=== PATIENT | female | born 1945 | race Caucasian/White ===

== ENCOUNTER 2016-03-26 08:40 | Observation (INO) | payer MEDICARE, OTHER ==
[~2016-03-26] VITALS: Ht 160 cm; Wt 68.1 kg
[2016-03-26] VITALS (8 sets, daily range): BP systolic 126–176; BP diastolic 78–97; PULSE 8–90; RESP 16–20; TEMP 97.7–97.8; O2SAT 96–99
[2016-03-26] MEDS ORDERED: SODIUM CHLOR 0.9% 1000 ML INJ 1,000 ML IV SCH (08:41)
[2016-03-26] MEDS ORDERED: SODIUM CHLORIDE 0.9% FLUSH 5 ML FLUSH IVF PRN (08:45)
[2016-03-26] MEDS ORDERED: ONDANSETRON HCL 4 MG/2 ML VIAL IVP ONE (08:45)
--- NOTE | 2016-03-26 08:45 | PD ---
HPI Chief Complaint: nausea, generalized weakness Time Seen by Provider: 08:41 Travel History International Travel<30 days: No Contact w/Intl Traveler<30days: No Traveled to known affect area: No History of Present Illness HPI 70-year-old female with history of vertigo brought in by ambulance from home for evaluation of nausea and generalized weakness. The patient woke up in the middle of the night at around 1:00 AM feeling the symptoms. Symptoms persisted throughout the night. The patient has not vomited. Symptoms are made better by closing her eyes, made worse by opening her eyes. She does not feel as though she is spinning. She denies headache. No chest pain or dyspnea. No abdominal pain. No fevers or chills. PFSH Social History Tobacco Use: No Allergies-Medications (Allergen,Severity, Reaction): Coded Allergies: Codeine (Verified Allergy, Unknown, 03/26/16) Reported Meds & Prescriptions Reported Meds & Active Scripts Active Reported Zocor (Simvastatin) 10 Mg Tab 10 Mg PO DAILY Lesley-D 24 Hour Allergy (Fexofenadine-Pseudoephedrine ER 24 HR) 180-240 Brando 1 Tab PO DAILY Review of Systems Except as stated in HPI: all other systems reviewed are Neg Physical Exam Narrative GENERAL: Well-developed, well-nourished, comfortable, no acute distress. SKIN: Warm and dry. HEAD: Atraumatic. Normocephalic. EYES: Pupils equal and round. No scleral icterus. No injection or drainage. ENT: No nasal bleeding or discharge. Mucous membranes pink and dry. NECK: Trachea midline. No JVD. CARDIOVASCULAR: Regular rate and rhythm. RESPIRATORY: No accessory muscle use. Clear to auscultation. Breath sounds equal bilaterally. GASTROINTESTINAL: Abdomen soft, non-tender, nondistended. MUSCULOSKELETAL: No obvious deformities. No clubbing. No cyanosis. No edema. NEUROLOGICAL: Awake and alert. No obvious cranial nerve deficits. Motor grossly within normal limits. Normal speech. PSYCHIATRIC: Appropriate mood and affect; insight and judgment normal. Data Data Last Documented VS Vital Signs Date Time Temp Pulse Resp B/P Pulse Ox O2 Delivery O2 Flow Rate FiO2 03/26/16 10:02 88 18 145/81 99 Room Air 03/26/16 08:47 97.8 Orders Complete Blood Count With Diff (03/26/16 08:41) Comprehensive Metabolic Panel (03/26/16 08:41) Urinalysis - C+S If Indicated (03/26/16 08:41) Iv Access Insert/Monitor (03/26/16 08:41) Ecg Monitoring (03/26/16 08:41) Oximetry (03/26/16 08:41) Ondansetron Inj (Zofran Inj) (03/26/16 08:45) Sodium Chlor 0.9% 1000 Ml Inj (Ns 1000 M (03/26/16 08:41) Sodium Chloride 0.9% Flush (Ns Flush) (03/26/16 08:45) Electrocardiogram (03/26/16 08:41) Ckmb (Isoenzyme) Profile (03/26/16 08:41) Troponin I (03/26/16 08:41) Influenzae A/B Antigen (03/26/16 08:41) CKMB (03/26/16 09:02) CKMB% (03/26/16 09:02) Ct Brain W/O Iv Contrast(Rout) (03/26/16 ) Magnesium (Mg) (03/26/16 09:02) Orthostatic Vital Signs (03/26/16 11:26) Admit Order (Ed Use Only) (03/26/16 11:26) Place In Observation (03/26/16 ) Vital Signs (Adult) Q4H (03/26/16 11:23) Neuro Checks Q4H (03/26/16 11:23) Activity Oob With Assistance (03/26/16 11:23) Low Voltage Electrician / Telemetry .CONTINUOUS (03/26/16 11:23) Intake + Output CARMEN.QSHIFT (03/26/16 11:23) Diet Clear Liquid (03/26/16 Lunch) Sodium Chlor 0.9% 1000 Ml Inj (Ns 1000 M (03/26/16 11:23) Sodium Chloride 0.9% Flush (Ns Flush) (03/26/16 11:30) Sodium Chloride 0.9% Flush (Ns Flush) (03/26/16 21:00) Acetaminophen (Tylenol) (03/26/16 11:30) Ondansetron Inj (Zofran Inj) (03/26/16 11:30) Metoclopramide Inj (Reglan Inj) (03/26/16 11:30) Magnesium Hydroxide Liq (Milk Of Magnesi (03/26/16 11:30) Basic Metabolic Panel (Bmp) (03/27/16 06:00) Case Management Consult (03/26/16 11:23) Scd Bilateral/Knee High CARMEN.BID (03/26/16 11:23) Naloxone Inj (Narcan Inj) (03/26/16 11:30) Orthostatic Blood Pressure RT.TID (03/26/16 11:23) Meclizine (Antivert) (03/26/16 11:45) Meclizine (Antivert) (03/26/16 11:30) Labs Laboratory Tests Test 03/26/16 03/26/16 09:02 10:01 White Blood Count 3.5 TH/MM3 Red Blood Count 4.73 MIL/MM3 Hemoglobin 14.0 GM/DL Hematocrit 41.6 % Mean Corpuscular Volume 87.9 FL Mean Corpuscular Hemoglobin 29.6 PG Mean Corpuscular Hemoglobin 33.7 % Concent Red Cell Distribution Width 13.1 % Platelet Count 256 TH/MM3 Mean Platelet Volume 8.3 FL Neutrophils (%) (Auto) 64.6 % Lymphocytes (%) (Auto) 23.1 % Monocytes (%) (Auto) 9.1 % Eosinophils (%) (Auto) 1.8 % Basophils (%) (Auto) 1.4 % Neutrophils # (Auto) 2.3 TH/MM3 Lymphocytes # (Auto) 0.8 TH/MM3 Monocytes # (Auto) 0.3 TH/MM3 Eosinophils # (Auto) 0.1 TH/MM3 Basophils # (Auto) 0.0 TH/MM3 CBC Comment DIFF FINAL Differential Comment Sodium Level 139 MEQ/L Potassium Level 3.6 MEQ/L Chloride Level 107 MEQ/L Carbon Dioxide Level 22.1 MEQ/L Anion Gap 10 MEQ/L Blood Urea Nitrogen 11 MG/DL Creatinine 0.63 MG/DL Estimat Glomerular Filtration 93 ML/MIN Rate Random Glucose 105 MG/DL Calcium Level 8.0 MG/DL Magnesium Level 1.9 MG/DL Total Bilirubin 0.5 MG/DL Aspartate Amino Transf 29 U/L (AST/SGOT) Alanine Aminotransferase 27 U/L (ALT/SGPT) Alkaline Phosphatase 51 U/L Total Creatine Kinase 150 U/L Creatine Kinase MB 2.4 NG/ML Troponin I LESS THAN 0.02 NG/ML Total Protein 6.8 GM/DL Albumin 3.5 GM/DL Urine Collection Type CLEAN CATCH Urine Color STRAW Urine Turbidity CLEAR Urine pH 7.5 Urine Specific [place] 1.009 Urine Protein NEG mg/dL Urine Glucose (UA) NEG mg/dL Urine Ketones TRACE mg/dL Urine Occult Blood NEG Urine Nitrite NEG Urine Bilirubin NEG Urine Leukocyte Esterase NEG Urine Squamous Epithelial 0-5 /hpf Cells Microscopic Urinalysis Comment CULT NOT INDICATED MDM Medical Decision Making Medical Screen Exam Complete: Yes Emergency Medical Condition: Yes Interpretation(s) EKG: Sinus, rate 81, left axis deviation, LBBB, Differential Diagnosis Nausea, viral illness, UTI, intracranial abnormality, vertigo Narrative Course Vital signs reviewed. CBC shows WBC 3.5, hemoglobin 14, hematocrit 41.6, platelets 256. CMP is unremarkable. Cardiac enzymes are negative. UA shows trace ketones, otherwise unremarkable. The patient was given Zofran and a liter of IV fluids. Upon reassessment she states she is feeling slightly better, however when she sits up she becomes symptomatic. CT head ordered. CT head: CONCLUSION: 1. Bilateral frontal and central white matter hypodensity likely representing chronic ischemic change. 2. Mild ethmoid sinus disease. 3. No acute intracranial findings identified. 11:15 AM: The patient and the patient's family were made aware of all findings. Patient is still feeling very nauseous and weak and feels unbalanced when she walks. There are no focal neurologic findings. She is not able to tolerate PO. I discussed the case with the patient's primary care physician back in [place] Dr. Resendez ( , ). Patient's EKG today shows a left bundle-branch block. He does not have a prior EKG for comparison. Given ongoing symptoms and inability to tolerate PO, the patient will be admitted for overnight observation. Case discussed with hospitalist Dr. Gutierrez who will admit the patient to her service. Diagnosis Primary Impression: Generalized weakness Additional Impression: Nausea Admitting Information Admitting Physician Requests: Observation Scripts Ondansetron Odt (Zofran Odt)4 Mg Tab4 Mg SL Q6HR PRN (Nausea/Vomiting) #30 TAB Ref 0 Prov:Jessica Gutierrez MD 03/27/16 Meclizine 25 Mg Tab25 Mg PO TID PRN (dizziness) #60 TAB Prov:Jessica Gutierrez MD 03/27/16 Neri Wing MD Mar 26, 2016 08:45
[2016-03-26] MEDS ORDERED: ZOCO10TA PO (08:54)
[2016-03-26] MEDS ORDERED: FEXO1TAB97 PO (08:54)
[2016-03-26 09:12] LABS: AUTOMATED NEUTROPHIL # 2.3 TH/MM3 (1.8-7.7); BASOPHIL % 1.4 % (0.0-2.0); EOSINOPHIL # 0.1 TH/MM3 (0-0.4); EOSINOPHIL % 1.8 % (0.0-4.0); HEMATOCRIT 41.6 % (35.0-46.0); HEMO FLAGS DIFF FINAL; LYMPH % 23.1 % (9.0-44.0); LYMPHOCYTE # 0.8 TH/MM3 (1.0-4.8); MEAN CELL VOLUME 87.9 FL (80.0-100.0); MEAN CORPUSCULAR HEMOGLOBIN 29.6 PG (27.0-34.0); MEAN CORPUSCULAR HGB CONC 33.7 % (32.0-36.0); MONO % 9.1 % (0.0-8.0); NEUT % 64.6 % (16.0-70.0); PLATELET COUNT 256 TH/MM3 (150-450); RED BLOOD COUNT 4.73 MIL/MM3 (4.00-5.30); RED CELL DISTRIBUTION WIDTH 13.1 % (11.6-17.2); WHITE BLOOD COUNT 3.5 TH/MM3 (4.0-11.0)
[2016-03-26 09:16] LABS: CHLORIDE 107 MEQ/L (98-107); POTASSIUM 3.6 MEQ/L (3.5-5.1); SODIUM (NA) 139 MEQ/L (136-145)
[2016-03-26 09:46] LABS: ANION GAP 10 MEQ/L (5-15); BICARBONATE 22.1 MEQ/L (21.0-32.0)
[2016-03-26 09:49] LABS: GLOMERULAR FILTRATION RATE 93 ML/MIN (>89)
[2016-03-26 09:50] LABS: TOTAL BILIRUBIN ADULT 0.5 MG/DL (0.2-1.0)
[2016-03-26 09:51] LABS: CREATINE KINASE 150 U/L (26-192)
[2016-03-26 09:52] LABS: ALKALINE PHOSPHATASE 51 U/L (45-117)
[2016-03-26 09:59] LABS: ALT (GPT) 27 U/L (10-53)
[2016-03-26 10:04] LABS: CKMB 2.4 NG/ML (0.5-3.6)
[2016-03-26 10:05] LABS: BLOOD UREA NITROGEN 11 MG/DL (7-18)
[2016-03-26 10:06] LABS: AST (GOT) 29 U/L (15-37)
[2016-03-26 10:07] LABS: BLOOD, URINE NEG (NEG); GLUCOSE,URINE NEG (NEG); KETONE, URINE TRACE mg/dL (NEG); NITRITE,URINE NEG (NEG); PH, URINE 7.5 (5.0-8.5)
[2016-03-26 10:09] LABS: METHOD OF COLLECTION CLEAN CATCH; URINE COLOR STRAW (YELLW/STRAW)
[2016-03-26 10:14] LABS: COMMENT (UR) CULT NOT INDICATED; CULTURE IF INDICATED CULT NOT INDICATED; SQUAMOUS EPITHELIAL CELL URINE 0-5 /hpf (0-5)
[2016-03-26 10:49] LABS: MAGNESIUM 1.9 MG/DL (1.5-2.5)
--- NOTE | 2016-03-26 11:09 | RADHPO ---
EXAM DATE/TIME: 03/26/2016 10:32 [facility] COMPARISON: No previous studies available for comparison. INDICATIONS : General weakness and nausea today. RADIATION DOSE: 55.40 CTDIvol (mGy) MEDICAL HISTORY : None SURGICAL HISTORY : None. ENCOUNTER: Initial ACUITY: 1 day PAIN SCALE: 0/10 LOCATION: Bilateral head TECHNIQUE: Multiple contiguous axial images were obtained of the head. Using automated exposure control and adj ustment of the mA and/or kV according to patient size, radiation dose was kept as low as reasonably a chievable to obtain optimal diagnostic quality images. FINDINGS: CEREBRUM: White matter hypodensity bilaterally in the frontal regions and extending into the internal and exter nal capsules right greater than left, likely representing chronic ischemic change. The ventricles are normal for age. No evidence of midline shift, mass lesion, hemorrhage or acute infarction. No extr a-axial fluid collections are seen. POSTERIOR FOSSA: The cerebellum and brainstem are intact. The 4th ventricle is midline. The cerebellopontine angle i s unremarkable. EXTRACRANIAL: Mild partial opacification of the right ethmoid sinus. SKULL: The calvaria is intact. No evidence of skull fracture. CONCLUSION: 1. Bilateral frontal and central white matter hypodensity likely representing chronic ischemic change . 2. Mild ethmoid sinus disease. 3. No acute intracranial findings identified. Jorge Dove MD on March 26, 2016 at 11:03 Board Certified Radiologist. This report was verified electronically.
[2016-03-26] MEDS ORDERED: MECLIZINE HCL 25 MG TAB PO PRN (11:30)
[2016-03-26] MEDS ORDERED: ONDANSETRON HCL 4 MG/2 ML VIAL IVP PRN (11:30)
[2016-03-26] MEDS ORDERED: ACETAMINOPHEN 325 MG TAB PO PRN (11:30)
[2016-03-26] MEDS ORDERED: SODIUM CHLORIDE 0.9% FLUSH 5 ML FLUSH FLUSH PRN (11:30)
[2016-03-26] MEDS ORDERED: METOCLOPRAMIDE HCL 10 MG/2 ML VIAL IV PUSH PRN (11:30)
[2016-03-26] MEDS ORDERED: MAGNESIUM HYDROXIDE SUSP 30 ML CUP PO PRN (11:30)
[2016-03-26] MEDS ORDERED: NALOXONE HCL 0.4 MG/ML AMP IV PRN (11:30)
[2016-03-26] MEDS ORDERED: MECLIZINE HCL 25 MG TAB PO ONE (11:45)
[2016-03-26] MEDS: SODIUM CHLOR 0.9% 1000 ML INJ 1,000 ML IV SCH ×2 (11:47→20:13)
[2016-03-26 15:20] LABS: CREATINE KINASE 222 U/L (26-192)
[2016-03-26 15:32] LABS: CKMB 3.3 NG/ML (0.5-3.6)
--- NOTE | 2016-03-26 16:30 | HHI.HP ---
[facility] Service [place] Hospitalists Primary Care Physician Non-Staff Admission Diagnosis generalized weakness, intractable nausea Diagnoses: Travel History International Travel<30 Days: No Contact w/Intl Traveler <30 Da: No Traveled to Known Affected Are: No History of Present Illness This is a very pleasant 70 year-old female with past medical history of hyperlipidemia and seasonal allergies who presents with acute onset of dizziness waking her from sleep at 3 AM this morning. The patient states that she was having a dream that she was dizzy and when she woke up at 3 AM she noticed that she felt dizzy. When she tried to sit up it made the symptoms worse and was associated with nausea. Laying down and closing her eyes makes the symptoms better. She denied any slurred speech, paresthesias, gait ataxia, unilateral weakness. The patient does have a previous history of vertigo but the last episode has been more than one year. Patient denies any hearing loss, tinnitus or ear pain. EKG in the emergency department did show mild interventricular conduction delay , normal sinus rhythm, possible left bundle branch block. No previous comparison. The patient denied any chest pain, chest pressure or shortness of breath. She has never had a stress test. The patient is here visiting from [place]. ER physician did talk to the primary care physician. The patient continued to feel dizzy and nauseated in the emergency department and so the ER physician requested observation. The patient is currently feeling better after receiving Zofran and meclizine in the emergency department. At the request of the patient I did discuss her care with her son who is a hospitalist in [place]. He inquired about doing a brain MRI. I did discuss the EKG with him as well. After this the patient started to state that she was having one out of 10 chest pain where the site of the telemetry pack was laying on her chest. It lasted for only 1 second and went away. She was unable to qualify the quality of the pain. We moved to telemetry pack off of her chest onto the side of the bed. She did also have muscle cramps in her calves and feet around 5 AM this morning which she does get occasionally. Review of Systems Ears, nose, mouth, throat: DENIES: Tinnitus, Hearing loss, Ear Pain Respiratory: DENIES: Cough, Shortness of breath Cardiovascular: COMPLAINS OF: Chest pain, DENIES: Palpitations, Syncope Gastrointestinal: COMPLAINS OF: Nausea, DENIES: Abdominal pain, Diarrhea, Vomiting Genitourinary: DENIES: Urinary frequency, Dysuria Integumentary: DENIES: Rash Hematologic/lymphatic: DENIES: Lymphadenopathy Neurologic: DENIES: Abnormal gait, Headache, Localized weakness, Paresthesias, Speech Problems, Poor Balance Psychiatric: DENIES: Confusion Past Family Social History Past Medical History Hyperlipidemia and seasonal allergies Reported Medications Allergies Coded Allergies Type Severity Reaction Last Updated Verified Codeine Allergy Unknown 03/26/16 Yes Active Scripts Medications Dose Route/Sig Days Date Category Zocor (Simvastatin) 10 Mg Tab 10 Mg PO DAILY 03/26/16 Reported Lesley-D 24 Hour Allergy (Fexofenadine-Pseudoephedrine ER 24 HR) 180-240 Brando 1 Tab PO DAILY 03/26/16 Reported Allergies: Coded Allergies: Codeine (Verified Allergy, Unknown, 03/26/16) Family History Positive for stroke in her mother Social History No alcohol tobacco or drug use Physical Exam Vital Signs Vital Signs Date Time Temp Pulse Resp B/P Pulse Ox O2 Delivery O2 Flow Rate FiO2 03/26/16 15:23 72 18 150/88 98 03/26/16 12:42 78 18 147/86 98 Room Air 03/26/16 11:36 95 18 158/78 100 16 160/95 03/26/16 10:02 88 18 145/81 99 Room Air 03/26/16 08:49 97 Room Air 03/26/16 08:47 97.8 86 16 176/97 97 Physical Exam GENERAL: Well-nourished, well-developed patient. SKIN: Warm and dry. HEAD: Normocephalic. EYES: No scleral icterus. No injection or drainage. No evident nystagmus. Ears: Tympanic membranes are clear bilaterally without erythema or bulging. NECK: Supple, trachea midline. No JVD or lymphadenopathy. CARDIOVASCULAR: Regular rate and rhythm without murmurs, gallops, or rubs. RESPIRATORY: Breath sounds equal bilaterally. No accessory muscle use. GASTROINTESTINAL: Abdomen soft, non-tender, nondistended. EXTREMITIES: No cyanosis, or edema. NEUROLOGICAL: Awake, alert, and oriented x 3. Non-focal. 5 out of 5 strength in all 4 extremities. Normal speech. Face is symmetric. Laboratory Laboratory Tests Test 03/26/16 03/26/16 03/26/16 09:02 10:01 14:57 White Blood Count 3.5 Red Blood Count 4.73 Hemoglobin 14.0 Hematocrit 41.6 Mean Corpuscular Volume 87.9 Mean Corpuscular Hemoglobin 29.6 Mean Corpuscular Hemoglobin 33.7 Concent Red Cell Distribution Width 13.1 Platelet Count 256 Mean Platelet Volume 8.3 Neutrophils (%) (Auto) 64.6 Lymphocytes (%) (Auto) 23.1 Monocytes (%) (Auto) 9.1 Eosinophils (%) (Auto) 1.8 Basophils (%) (Auto) 1.4 Neutrophils # (Auto) 2.3 Lymphocytes # (Auto) 0.8 Monocytes # (Auto) 0.3 Eosinophils # (Auto) 0.1 Basophils # (Auto) 0.0 CBC Comment DIFF FINAL Differential Comment Sodium Level 139 Potassium Level 3.6 Chloride Level 107 Carbon Dioxide Level 22.1 Anion Gap 10 Blood Urea Nitrogen 11 Creatinine 0.63 Estimat Glomerular Filtration 93 Rate Random Glucose 105 Calcium Level 8.0 Magnesium Level 1.9 Total Bilirubin 0.5 Aspartate Amino Transf 29 (AST/SGOT) Alanine Aminotransferase 27 (ALT/SGPT) Alkaline Phosphatase 51 Total Creatine Kinase 150 222 Creatine Kinase MB 2.4 3.3 Troponin I LESS THAN 0.02 LESS THAN 0.02 Total Protein 6.8 Albumin 3.5 Urine Collection Type CLEAN CATCH Urine Color STRAW Urine Turbidity CLEAR Urine pH 7.5 Urine Specific [place] 1.009 Urine Protein NEG Urine Glucose (UA) NEG Urine Ketones TRACE Urine Occult Blood NEG Urine Nitrite NEG Urine Bilirubin NEG Urine Leukocyte Esterase NEG Urine Squamous Epithelial 0-5 Cells Microscopic Urinalysis Comment CULT NOT INDICATED Creatine Kinase MB % 1.5 Date/Time Procedure Status Source Growth 03/26/16 09:02 Influenza Types A,B Antigen (AZRA) - Final Complete Nasal Washing NEGATIVE FOR FLU A AND B ANTIGEN.... Result Diagram: 03/26/1690103/26/16901 Imaging Last Impressions Head CT 03/26/16 0000 Signed Impressions: Service Date/Time: Saturday, March 26, 2016 10:32 - CONCLUSION: 1. Bilateral frontal and central white matter hypodensity likely representing chronic ischemic change. 2. Mild ethmoid sinus disease. 3. No acute intracranial findings identified. Jorge Dove MD Assessment and Plan Problem List: (1) Nausea ICD Code: R11.0 Status: Acute (2) Dizziness ICD Code: R42 Status: Acute Assessment and Plan -Dizziness which is exacerbated by movement. This came as a sudden onset at 3 AM this morning. Head CT is negative for acute findings. BMP is negative. The patient is symptomatically feeling improved after receiving meclizine and Zofran. She does have a previous history of vertigo with last episode being a year ago. I believe this is most likely benign positional vertigo. Will treat with IV fluids, meclizine, nausea medication when necessary. We can consider ruling out vertebrobasilar insufficiency or other causes of dizziness if the symptoms are still persistent tomorrow. I did instruct her and her to notify the nurse if she develops any new neurologic symptoms more concerning for stroke. Neuro checks have been ordered every 4 hours. The patient at this time declines to have an MRI citing severe claustrophobia. She also has never taken Ativan and is concerned about the effect that might have on her for the MRI. She is also on telemetry. -Mild intraventricular conduction delay seen on initial EKG versus left bundle branch block. No previous EKG for comparison. She did have a 1 second episode of chest pain is 1 out of 10 while I was talking to her son regarding her EKG results. We'll proceed with serial cardiac enzymes, continue telemetry and get several more EKGs for follow-up. -Hyperlipidemia. Will resume home medications. -Muscle cramps in the calves, which are not atypical for the patient per history. Electrolytes are within normal limits. -DVT prophylaxis with SCDs. Discussed Condition With I did at the patient and the patient's request talk to their son who is a hospitalist in [place]. Jessica Gutierrez MD Mar 26, 2016 16:30
[2016-03-26] MEDS: MECLIZINE HCL 25 MG TAB PO SCH (17:38)
[2016-03-26] MEDS: SODIUM CHLORIDE 0.9% FLUSH 5 ML FLUSH FLUSH SCH (20:12)
[2016-03-26 22:05] LABS: CREATINE KINASE 277 U/L (26-192)
[2016-03-26 22:19] LABS: CKMB 3.8 NG/ML (0.5-3.6)
[2016-03-27] VITALS (9 sets, daily range): BP systolic 99–155; BP diastolic 63–88; PULSE 64–79; RESP 16–20; TEMP 97.8–98.1; O2SAT 96–99
[2016-03-27] MEDS: SODIUM CHLOR 0.9% 1000 ML INJ 1,000 ML IV SCH (06:03)
[2016-03-27 06:46] LABS: POTASSIUM 3.5 MEQ/L (3.5-5.1)
[2016-03-27 06:51] LABS: BICARBONATE 27.5 MEQ/L (21.0-32.0)
[2016-03-27] MEDS: MECLIZINE HCL 25 MG TAB PO SCH ×2 (09:23→12:52)
[2016-03-27] MEDS: SODIUM CHLORIDE 0.9% FLUSH 5 ML FLUSH FLUSH SCH (09:23)
--- NOTE | 2016-03-27 09:39 | HHI.PR ---
Subjective Remarks The patient states that this morning her dizziness and nausea have resolved. She got up last night to check her orthostatics which were positive. She stated last night she felt slightly unsteady on her feet. However she's been up and walking around her room this morning with no symptoms of dizziness or lightheadedness. The patient would like to go home today. Objective Vitals Vital Signs Date Time Temp Pulse Resp B/P Pulse Ox O2 Delivery O2 Flow Rate FiO2 03/27/16 08:06 77 104/72 97 03/27/16 08:03 65 127/75 97 03/27/16 08:00 97.8 64 16 121/63 96 03/27/16 04:00 97.9 66 20 145/86 97 03/27/16 00:00 98.1 74 20 155/88 99 03/26/16 20:00 97.7 90 20 145/85 98 03/26/16 20:00 80 03/26/16 20:00 97.7 78 20 155/83 98 03/26/16 20:00 97.7 83 20 126/79 98 03/26/16 16:00 97.8 87 18 143/85 96 03/26/16 15:23 72 18 150/88 98 03/26/16 12:42 78 18 147/86 98 Room Air 03/26/16 11:36 95 18 158/78 100 16 160/95 03/26/16 10:02 88 18 145/81 99 Room Air I/O 03/26/16 03/26/16 03/26/16 03/27/16 03/27/16 03/27/16 07:00 15:00 23:00 07:00 15:00 23:00 Intake Total 1000 ml 1373 ml 881 ml Output Total 500 ml 900 ml Balance 500 ml 1373 ml -19 ml Intake Oral 480 ml 0 ml IV Total 1000 ml 893 ml 881 ml Output Urine Total 500 ml 900 ml # Voids 1 2 2 # Bowel Movements 0 0 Result Diagram: 03/26/16 0902 03/27/16 0555 Objective Remarks GENERAL: Well-nourished, well-developed very pleasant female patient. SKIN: Warm and dry. HEAD: Normocephalic. EYES: No scleral icterus. No injection or drainage. NECK: Supple, trachea midline. No JVD or lymphadenopathy. CARDIOVASCULAR: Regular rate and rhythm without murmurs, gallops, or rubs. RESPIRATORY: Breath sounds equal bilaterally. No accessory muscle use. GASTROINTESTINAL: Abdomen soft, non-tender, nondistended. EXTREMITIES: No cyanosis, or edema. NEUROLOGICAL: Awake, alert, and oriented x 3. Non-focal. A/P Problem List: (1) Nausea ICD Code: R11.0 Status: Acute (2) Dizziness ICD Code: R42 Status: Acute (3) Left bundle branch block (LBBB) on electrocardiogram ICD Code: I44.7 Status: Acute Assessment and Plan -Dizziness which is exacerbated by movement, in a patient with history of benign positional vertigo. This came as a sudden onset [address] is negative for acute findings. Symptoms now resolved status post meclizine and Zofran. We did discuss ruling out vertebrobasilar insufficiency or other causes of dizziness. However the patient declines MRI citing severe claustrophobia. I did instruct her and her to return to the ER if she develops any new neurologic symptoms more concerning for stroke. -left bundle branch block. Asymptomatic. No previous history. No history of long-standing hypertension or coronary artery disease. 3 EKGs show a left bundle branch block without changes. 3 Troponins are negative. Will obtain 2- D echocardiogram and if that shows preserved left ventricular ejection fraction and no significant valve abnormalities she may follow-up with her primary care physician when she returns to [place]. -Hyperlipidemia. Will resume home medications. -Muscle cramps in the calves, which are not atypical for the patient per history. Electrolytes are within normal limits. Now resolved. -DVT prophylaxis with SCDs. Discussed with patient and her at bedside who are in agreement with plan. Jessica Gutierrez MD Mar 27, 2016 09:39
[2016-03-27] MEDS ORDERED: ZOFR4TAB3 SL (09:40)
[2016-03-27] MEDS ORDERED: MECL-62 PO (09:40)
--- NOTE | 2016-03-27 14:21 | EKG ---
Date Performed: 03/27/2016 Time Performed: 02:52:22 PTAGE: 70 years EKG: Sinus rhythm . Left bundle branch block Abnormal ECG PREVIOUS TRACING : 03/26/2016 21.13 DOCTOR: Haider Mg Interpretating Date/Time 03/27/2016 14:17:14
--- NOTE | 2016-03-27 14:26 | EKG ---
Date Performed: 03/26/2016 Time Performed: 21:13:20 PTAGE: 70 years EKG: Sinus rhythm . Leftward axis Incomplete LBBB Cannot rule out anteroseptal infarct - age undetermined Left ventricu lar hypertrophy Lateral ST-T changes are probably due to ventricular hypertrophy Abnormal ECG PREVIOUS TRACING : 03/26/2016 15.32 DOCTOR: Haider Mg Interpretating Date/Time 03/27/2016 14:22:37
--- NOTE | 2016-03-27 14:32 | EKG ---
Date Performed: 03/26/2016 Time Performed: 15:32:42 PTAGE: 70 years EKG: Sinus rhythm . Left bundle branch block Abnormal ECG PREVIOUS TRACING : 03/26/2016 08.44 DOCTOR: Haider Mg Interpretating Date/Time 03/27/2016 14:28:53
--- NOTE | 2016-03-27 14:43 | EKG ---
Date Performed: 03/26/2016 Time Performed: 08:44:20 PTAGE: 70 years EKG: Sinus rhythm Left bundle branch block Abnormal ECG NO PREVIOUS TRACING DOCTOR: Haider Mg Interpretating Date/Time 03/27/2016 14:36:36
--- NOTE | 2016-03-28 12:16 | EC ---
Study Study Date:03/27/2016 STUDY CONCLUSIONS SUMMARY - Left ventricle: The cavity size was normal. Wall thickness was normal. Systolic function was normal. The estimated ejection fraction was in the range of 55% to 60%. Wall motion was normal; there were no regional wall motion abnormalities. - Aortic valve: Valve area: 2.04cm^2(VTI). Valve area: 1.59cm^2 (Vmax). - Mitral valve: Mild regurgitation. - Tricuspid valve: Mild regurgitation. - Pulmonary arteries: PA peak pressure: 32mm Hg (S). If LV function is below 40, please consider prescribing an ACEI or ARB or document rationale for non-use. PROCEDURE DATA STUDY STATUS: Elective. Procedure: Transthoracic echocardiography. Image quality was good. Scanning was performed from the parasternal, apical, and subcostal acoustic windows. Study completion: The patient tolerated the procedure well. Transthoracic echocardiography. M-mode, complete 2D, complete spectral Doppler, and color Doppler. Patient status: Inpatient. CARDIAC ANATOMY LEFT VENTRICLE: The cavity size was normal. Wall thickness was normal. Systolic function was normal. The estimated ejection fraction was in the range of 55% to 60%. Wall motion was normal; there were no regional wall motion abnormalities. AORTIC VALVE: Trileaflet; normal thickness leaflets. Doppler: Transvalvular velocity was within the normal range. There was no stenosis. No regurgitation. Valve area: 2.04cm^2(VTI). Valve area: 1.59cm^2 (Vmax). Mean gradient: 6mm Hg (S). Peak gradient: 11mm Hg (S). AORTA: Aortic root: The aortic root was normal in size. MITRAL VALVE: Structurally normal valve. Doppler: Transvalvular velocity was within the normal range. There was no evidence for stenosis. Mild regurgitation. Peak gradient: 4mm Hg (D). LEFT ATRIUM: The atrium was normal in size. RIGHT VENTRICLE: The cavity size was normal. Wall thickness was normal. PULMONIC VALVE: Doppler: Transvalvular velocity was within the normal range. There was no evidence for stenosis. No regurgitation. TRICUSPID VALVE: Structurally normal valve. Doppler: Transvalvular velocity was within the normal range. Mild regurgitation. PULMONARY ARTERY: The main pulmonary artery was normal-sized. Systolic pressure was within the normal range. RIGHT ATRIUM: The atrium was normal in size. PERICARDIUM: There was no pericardial effusion. SYSTEMIC VEINS: Inferior vena cava: The vessel was normal in size. BASIC MEASUREMENTS ADULT NORMAL Left ventricle LV internal dimension, ED, chordal level, *38.8 mm 43-52 PLAX LV internal dimension, ES, chordal level, 25.1 mm 23-38 PLAX Fractional shortening, chordal level, PLAX 35 % >29 LV posterior wall thickness, ED 10.3 mm IVS/LVPW ratio, ED 1.11 <1.3 Ventricular septum Septal thickness, ED 11.4 mm Aortic valve Leaflet separation *13 mm 15-26 Right ventricle RV internal dimension, ED, PLAX 32.6 mm 19-38 BASIC MEASUREMENTS ADULT NORMAL Aortic valve Leaflet separation *13 mm 15-26 Aorta Root diameter, ED 26 mm 20-37 Left atrium Anterior-posterior dimension, ES 26 mm 19-40 LA/aortic root ratio 1 DOPPLER MEASUREMENTS ADULT NORMAL Main pulmonary artery Pressure, S *32 mm Hg =30 Aortic valve Peak velocity, S 165 cm/s Mean velocity, S 111 cm/s VTI, S 36.4 cm Mean gradient, S 6 mm Hg Peak gradient, S 11 mm Hg Valve area, VTI 2.04 cm^2 Valve area, Vmax 1.59 cm^2 Mitral valve Peak E-wave velocity 101 cm/s Peak A-wave velocity 96.7 cm/s Deceleration time *250 ms 150-230 Peak gradient, D 4 mm Hg Peak E/A ratio 1 Tricuspid valve Regurgitant peak velocity 232 cm/s Peak RV-RA gradient, S 22 mm Hg Maximal regurgitant velocity 232 cm/s Systemic veins Estimated CVP 10 mm Hg Right ventricle RV pressure, S *32 mm Hg <30 LEGEND: Mean values are shown as u=mean value. Asterisk (*) richards values outside specified normal range. Prepared and signed by Haider Mg [id number]
== END 2016-03-27 15:20 | disposition home or self-care (01) ==
LOC: PHED 08:40 → UNDOADMOB 11:28 → PHEDA 11:28 → PH3B 15:16 → PHEDA 15:16 → UNDODISOB 03-27 15:20
PROVIDERS: ADMIT Family Medicine; ATTEND Family Medicine
DX: R11.0 Nausea (principal); R42 Dizziness and giddiness; I44.7 Left bundle-branch block, unspecified; R94.31 Abnormal electrocardiogram [ECG] [EKG]; R07.9 Chest pain, unspecified; E78.5 Hyperlipidemia, unspecified
CPT/HCPCS: 70450; 80048; 80053; 81001; 82550; 82552; 83735; 84484; 85025; 87804; 93005; 93306; 96361; 96374; 99285; G0378; J2405; J7030